=== PATIENT | male | born 1990 | race Caucasian/White ===

== ENCOUNTER 2017-09-19 02:10 | Emergency (ER) | payer OTHER ==
[2017-09-19] MEDS: CEFAZOLIN 1 GM INJ IM (03:50)
== END 2017-09-19 05:28 | disposition left against medical advice (07) ==
LOC: FTE 02:10
DX: S61.411A Laceration without foreign body of right hand, initial encounter (principal); W26.8XXA Contact with other sharp object(s), not elsewhere classified, initial encounter; Y92.89 Other specified places as the place of occurrence of the external cause
CPT/HCPCS: 12001; 96372; 99284-25